=== PATIENT | female | born 1995 | race Caucasian/White ===

== ENCOUNTER 2017-12-04 22:13 | Inpatient (IN) | payer BC ==
[2017-12-04 22:56] VITALS: BMI 27.3
--- NOTE | 2017-12-04 23:32 | PDOC.LDHP ---
Labor and Delivery H&P Chief complaint: other (headache) HPI: 22 yo G1 @ 37.2wks with pmhx of chronic hypertension presents with a headache, since noon today. States its bilateral, frontotemporal, and worsened since noon. She has taken two tylenol which have not helped. Denies changes in vision , n/v/d, LOF, contractions, vaginal discharge, dysuria. She takes methyldopa 500mg BID for her chronic hypertension. She said she did a 24 hour urine protein two weeks ago which she was told was normal. Due date: 12/23/17 Grav: 1 Current complications: gestational diabetes Abnormal US findings: No Past Medical History: chronic htn Current medications: other (methyldopa 500mg BID) Previous surgical history: other (two prior back surgeries for scoliosis) Allergies/Adverse Reactions: Allergies Allergy/AdvReac Type Severity Reaction Status Date / Time No Known Allergies Allergy Unverified 12/04/17 22:46 Social history: none - Physical Exam Vital signs reviewed and normal: yes Abnormal vital signs: 170/117; 171/100; 179/108; 161/108; 147/92 General: NAD Heart: RRR Lungs: nonlabored breathing Abdomen: gravid Extremeties: no edema FHT: category 1 - OB Labs GBS: negative Additional Labs: 24 hour protein in clinic: 240 - Assessment 22 yo G1 @ 37.2wks with pmhx of chronic htn presents with a headache and elevated blood pressures. 1)sIUP- 2)Chronic HTN- -Rule out PreE with severe features -Ordered cbc, cmp, urine protein, urine creatinine -Placed IV, and will give labetalol 20 mg IV prn bp>160/110 -Will monitor bp [id number] overnight and monitor baby via NST
[2017-12-04] MEDS ORDERED: Calcium Carbonate 500 MG ChewTAB PO PRN (23:54)
[2017-12-04] MEDS ORDERED: Labetalol HCl 100 MG/20 ML VIAL SLOW IVP PRN (23:59)
[2017-12-05 00:01] LABS: #Eosinphils 0.1 thou/uL (0.0-0.7); #Lymphocytes 1.8 thou/uL (1.20-3.40); #Monocytes 0.7 thou/uL (0.11-0.59); #Neutrophils 5.6 thou/uL (1.40-6.50); %Basophils 0.4 % (0.0-1.0); %Lymphocytes 22.1 % (21.0-51.0); %Monocytes 8.8 % (0.0-10.0); %Neutrophils 67.7 % (42.0-75.0); Hemoglobin 11.9 g/dL (12.0-16.0); Mean Corpuscular HGB CONC 33.8 g/dL (32.0-36.0); Mean Corpuscular Hemoglobin 32.6 pg (27.0-31.0); Mean Corpuscular Volume 96.3 fL (78.0-98.0); Platelet Count 177 thou/uL (130-400); RBC Distribution Width 12.1 % (11.5-14.5); Red Blood Cell (RBC) Count 3.66 mill/uL (4.20-5.40); White Blood Cell (WBC) Count 8.2 thou/uL (4.8-10.8)
[2017-12-05] MEDS ORDERED: Lactated Ringer's 1,000 ML IV SCH ×2 (00:15→11:15)
[2017-12-05 00:22] LABS: Protein, Urine Random Quant Less than 10 mg/dL (1-14)
[2017-12-05 00:36] LABS: ALT (SGPT) 9 U/L (8-55); AST (SGOT) 20 U/L (5-34); Albumin 3.4 g/dL (3.5-5.0); Alkaline Phosphatase 191 U/L (40-150); Anion Gap 12 mmol/L (10-20); BUN (Urea Nitrogen) 6 mg/dL (7.0-18.7); Bilirubin, Total 0.4 mg/dL (0.2-1.2); Calc. Creatinine Clearance 153 mL/min (70-130); Calcium 10.1 mg/dL (7.8-10.44); Carbon Dioxide 25 mmol/L (22-29); Chloride 103 mmol/L (98-107); Estimated GFR-MDRD Greater than 90; Glucose 89 mg/dL (70-105); Potassium 3.3 mmol/L (3.5-5.1); Protein, Total 6.4 g/dL (6.0-8.3); Sodium 137 mmol/L (136-145)
[2017-12-05] MEDS ORDERED: diphenhydrAMINE 50 MG/ML VIAL IVP PRN ×2 (01:14→15:54)
[2017-12-05] MEDS ORDERED: Acetaminophen 325 MG TAB PO PRN (01:14)
[2017-12-05] MEDS ORDERED: Metoclopramide HCl 10 MG/2 ML VIAL IVP PRN (01:15)
[2017-12-05] MEDS ORDERED: Acetaminophen 500 MG TAB PO SCH (01:15)
--- NOTE | 2017-12-05 07:50 | PRG ---
DATE OF SERVICE: 12/05/2017 TIME OF SERVICE: 06:50 SUMMARY: Ms. Arredondo is a 22-year-old primigravida at 37 weeks, who sees Dr. Daniel Escalante. She has a diagnosis of chronic hypertension and has been on methyldopa 500 b.i.d. for her chronic hypertension . She presented last night complaining of some headaches. These responded well to one dose of labet alol for 170/100 initial presentation blood pressure. Since administration, blood pressures have bee n 145/84, 143/89, currently is 120/86. heart rate tracing has been consistent with category 1 with no contractions. Exam reveals a soft abdomen, normal DTRs. No significant edema. Cervix is cl osed, long, and high, presenting part not palpated. LABORATORY DATA: Reveals a hematocrit of 35% with a normal platelet count, normal creatinine, normal ALT and AST, and a ndquakn-hd-cswgwbounn ratio that is less than 0.2. IMPRESSION: Chronic hypertension in at 37 weeks with elevating systolics and diastolics wi th uncertain presentation. PLAN: 1. Ultrasound with AFSHIN, weight in presentation. 2. Continue labor and delivery observation and we will discuss further patient care with Dr. Escalante.
--- NOTE | 2017-12-05 10:32 | ULT ---
OB ULTRASOUND: DATE: 12/05/17. HISTORY: Chronic hypertension in a patient with positive . FINDINGS: There is a single intrauterine gestation in breech presentation. Cardiac Doppler demonstrates heart tones with a heart rate of 122 b.p.m. A grade III placenta is located anteriorly without evidence of placenta previa. Amniotic fluid index is calculated at 9.6 cm. There is shadowing in the region of the cervix, but based on transabdominal imaging, the cervix gross ly measures 3.3 cm in length. Measurements: Biparietal diameter 8.43 cm, 34 weeks Head circumference 32.11 cm, 36 weeks 2 days Abdominal circumference 31.93 cm, 35 weeks 6 days Femur length 6.92 cm, 35 weeks 4 days The estimated gestational age by ultrasound is 35 weeks and 3 days with an MIRIAN on 01/06/18. Gestatio nal age by the last menstrual period is 37 weeks and 3 days. The estimated weight by ultrasound is 2718 gm (6 pounds). This represents 16th percentile for weight. Four-chamber heart is difficult to definitely delineate on this exam. Cerebellum is obscured due to shadowing from skull. The stomach, bilateral kidneys, and urinary bladder demonstrate a normal sonographic appearance. Three-vessel cord and cord insertion are not well visualized related to fet al positioning and the later gestational age of the fetus limiting adequate evaluation. spine not imaged. No definite anomalies are seen on provided exam. IMPRESSION: 1. Single intrauterine gestation in breech presentation with heart tones documented. 2. Estimated gestational age by ultrasound is 35 weeks and 3 days with an estimated date of delivery on 01/06/18. 3. Estimated weight 2718 gm (6 pounds). 4. Amniotic fluid index measures 9.6 cm. POS: [facility]
[2017-12-05] MEDS ORDERED: Ondansetron HCl/PF 4 MG/2 ML Vial IVP PRN ×4 (11:07→18:54)
[2017-12-05] MEDS ORDERED: Bicitra 30 ML UDCUP PO SCH (11:15)
[2017-12-05] MEDS ORDERED: CEFAZOLIN/Water 2 GM/20 ML SYRINGE SLOW IVP SCH (11:15)
[2017-12-05 12:29] LABS: Hemoglobin 12.3 g/dL (12.0-16.0); Mean Corpuscular HGB CONC 34.3 g/dL (32.0-36.0); Mean Corpuscular Hemoglobin 33.1 pg (27.0-31.0); Mean Corpuscular Volume 96.6 fL (78.0-98.0); Mean Platelet Volume 7.6 fL (7.4-10.4); Platelet Count 181 thou/uL (130-400); RBC Distribution Width 12.1 % (11.5-14.5); Red Blood Cell (RBC) Count 3.71 mill/uL (4.20-5.40); White Blood Cell (WBC) Count 9.5 thou/uL (4.8-10.8)
[2017-12-05 13:20] LABS: HBSAg Index 0.21 S/CO (0-0.99); Hep B Surf Ag Non-Reactive S/CO (NonReactive); Syphilis Antibody Nonreactive (Nonreactive); Syphilis Antibody Index 0.03 S/CO (<1.00 Non-Reactive)
[2017-12-05] MEDS ORDERED: Morphine PF 1 MG/ML SYR ONE (15:22)
[2017-12-05] MEDS ORDERED: Fentanyl 100 MCG/2 ML VIAL ONE (15:22)
[2017-12-05] MEDS ORDERED: Oxytocin 10 UNITS/ML VIAL ONE (15:23)
[2017-12-05] MEDS ORDERED: Ondansetron HCl/PF 4 MG/2 ML Vial ONE ×2 (15:23→16:04)
[2017-12-05] MEDS ORDERED: ePHEDrine/0.9% NaCl/PF SYRINGE 50 mg/10 ml ONE ×2 (15:23→16:04)
[2017-12-05] MEDS ORDERED: Bupivacaine 0.75% W/DEXTROSE 8.25% 2 ML AMP ONE (15:23)
[2017-12-05] MEDS ORDERED: Lidocaine 1% PF 5 ML VIAL ONE (15:23)
[2017-12-05] MEDS ORDERED: PHENYLEPHRINE-NS 100 MCG/ML 10 ML SYRINGE ONE ×2 (15:47→16:04)
[2017-12-05] MEDS ORDERED: Promethazine HCl 25 MG/ML VIAL IM PRN ×2 (15:54→18:54)
[2017-12-05] MEDS ORDERED: Naloxone HCl 0.4 mg/ml Vial IV PRN (15:54)
[2017-12-05] MEDS ORDERED: Meperidine HCl/PF 25 MG/ML VIAL SLOW IVP PRN (15:54)
[2017-12-05] MEDS ORDERED: Promethazine HCl 25 MG SUPP PR PRN (15:54)
[2017-12-05] MEDS ORDERED: Eucerin (Mineral Oil/Petrolatum,White) 30 gm Jar TOP PRN (15:54)
[2017-12-05] MEDS ORDERED: Naloxone HCl 0.4 mg/ml Vial IVP PRN ×2 (15:54)
[2017-12-05] MEDS ORDERED: Ketorolac Tromethamine 30 MG/ML VIAL IVP PRN (15:54)
[2017-12-05] MEDS ORDERED: HYDROmorphone 2 MG/ML VIAL SLOW IVP PRN (15:54)
[2017-12-05] MEDS ORDERED: Ketorolac Tromethamine 30 MG/ML VIAL IVP SCH (16:00)
[2017-12-05] MEDS ORDERED: Communication Order-Pharmacy FS SCH (16:00)
[2017-12-05] MEDS ORDERED: Ketorolac Tromethamine 30 MG/ML VIAL ONE (16:32)
[2017-12-05] MEDS ORDERED: NS / Oxytocin 40 units/1000ml 1,000 ML ONE (17:47)
[2017-12-05] MEDS ORDERED: Lanolin Ointment 7 GM TUBE TOP PRN (18:54)
[2017-12-05] MEDS ORDERED: Bisacodyl 10 MG SUPP PR PRN (18:54)
[2017-12-05] MEDS ORDERED: Zolpidem Tartrate 5 MG TAB PO PRN (18:54)
[2017-12-05] MEDS ORDERED: NS / Oxytocin 40 units/1000ml 1,000 ML IV SCH (18:54)
[2017-12-05] MEDS ORDERED: Misoprostol 200 MCG TAB PR PRN (18:54)
[2017-12-05] MEDS: Docusate Calcium (SURFAK) 240 MG CAP PO SCH (20:54)
[2017-12-05] MEDS: Simethicone Chewable 80 MG TAB PO PRN (20:54)
[2017-12-06] MEDS: HYDROcodone/Acetaminophen 5/325 mg Tablet PO PRN ×5 (05:30→22:37)
[2017-12-06 05:41] LABS: Hemoglobin 10.2 g/dL (12.0-16.0); Mean Corpuscular HGB CONC 34.1 g/dL (32.0-36.0); Mean Corpuscular Hemoglobin 33.5 pg (27.0-31.0); Mean Corpuscular Volume 98.4 fL (78.0-98.0); Mean Platelet Volume 8.3 fL (7.4-10.4); Platelet Count 148 thou/uL (130-400); RBC Distribution Width 12.1 % (11.5-14.5); Red Blood Cell (RBC) Count 3.05 mill/uL (4.20-5.40); White Blood Cell (WBC) Count 10.1 thou/uL (4.8-10.8)
[2017-12-06] MEDS ORDERED: Varicella virus, LIVE 0.5 ML VIAL SC ONE (09:00)
[2017-12-06] MEDS ORDERED: Adacel (T-DAP) 0.5 ML VIAL IM ONE (09:00)
[2017-12-06] MEDS ORDERED: Measles/Mumps/Rubella 10 MCG/0.5 ML VIAL SC ONE (09:00)
[2017-12-06] MEDS: Docusate Calcium (SURFAK) 240 MG CAP PO SCH ×2 (09:09→22:38)
[2017-12-06] MEDS: Simethicone Chewable 80 MG TAB PO PRN ×3 (09:09→22:37)
[2017-12-06] MEDS: Ibuprofen 800 MG TAB PO SCH ×2 (13:47→22:37)
--- NOTE | 2017-12-06 20:11 | PDOC.PP ---
Post Progress Note Post Day #: 1 PO intake tolerated: yes Flatus: yes Ambulation: yes Vital Signs (12 hours) Temp Pulse Resp BP BP 12/06/17 15:40 97.7 F 96 18 149/89 H 12/06/17 09:09 141/79 H Weight Weight 140 lb - Physical Examination General: NAD Cardiovascular: no m/r/g Respiratory: clear to auscultation bilaterally Abdominal: + bowel sounds Extremities: negative homans (B) Skin: CS incision dry & intact Neurological: no gross focal deficits Psychiatric: A&Ox3 Result Diagrams: 12/06/17 04:50 12/04/17 23:47 Additional Labs: Post Labs Blood Type O POSITIVE 12/04/17 23:48 Hep Bs Antigen Non-Reactive S/CO (NonReactive) 12/05/17 12:20 - Assessment/Plan Patient is doing very well today. No complaints.
--- NOTE | 2017-12-07 00:57 | OP ---
DATE OF PROCEDURE: 12/05/2017 PREOPERATIVE DIAGNOSES: Intrauterine at 37 weeks and 3 days with breech presentation and c hronic hypertension with severe exacerbation of blood pressures noted with persistent headache. POSTOPERATIVE DIAGNOSES: Intrauterine at 37 weeks and 3 days with breech presentation and chronic hypertension with severe exacerbation of blood pressures noted with persistent headache. PROCEDURE: A primary low transverse section using a Pfannenstiel skin incision. FINDINGS: Viable female infant weighing 2752 grams or 6 pounds 1 ounce, Apgars 9 and 9 with double f ootling breech presentation. Quantitative blood loss of 450 mL. COMPLICATIONS: None. DETAILS OF THE PROCEDURE: The patient was consented and taken back to the operating room where spina l anesthesia was found to be adequate. She was then prepped and draped in the normal sterile fashion . A time out was performed by the entire operative team. The incision was then marked with a marking pen tested using sharp pickups. An incision was then made with a scalpel. The incision was carried through the adipose tissue down to the underlying rectus fascia using both sharp dissection as well as cautery. Once the fascia was identified, it was incised in the midline and then the fascial incis ion was carried through in both lateral directions using sharp as well as cautery dissection techniqu es. Next, the superior aspect of the rectus fascia was grasped with 2 Renee clamps which was tented up and the rectus muscles were dissected off using blunt dissection as well as cautery dissection. Similarly, the inferior aspect of the fascial incision was grasped with 2 Renee clamps, tented up an d the rectus muscles were dissected off bluntly as well as sharply. Next, the rectus muscles were se parated in the midline and the peritoneum identified. The peritoneum was then carefully grasped with two hemostats and entered sharply. The peritoneal incision was extended superiorly and inferiorly a nd bladder blade was placed in the lower abdomen. At this point, the uterus was identified and the b ladder flap was then developed using pickups with teeth as well as Metzenbaum scissors in both latera l directions. The bladder flap was then dissected downwards using the barrel roller operator's finger as well as M etzenbaum scissors. The bladder blade was replaced. The lower uterine segment was then identified a nd entered sharply using a clean scalpel. The uterine incision was then dissected downwards until th in layer of muscle remained and this was entered bluntly using a hemostat to avoid any injury to the baby. The uterine incision was then stretched using two fingers in both lateral directions. An amniotomy was performed artificially using a hemostat and the baby was delivered using fundal pres sure in a gentle fashion. Once out, the baby's mouth and nose were bulb suctioned, cord clamped and cut, and the baby was handed to waiting attendants. Next, the uterus was exteriorized, cleared of al l clots and debris and the uterine incision was repaired with #1 Monocryl in a running locking fashio n. A second suture of the same type was used to obtain complete hemostasis at the uterine incision. The bladder flap was reapproximated using 3-0 Monocryl. Next, patient's left and right adnexa were inspected and appeared to be within normal limits. The posterior cul-de-sac was blotted dry and hemo stasis assured. One more look at the uterine incision demonstrated hemostasis. Next, the uterus was replaced back within the abdomen. The peritoneum was reapproximated using 2-0 Monocryl without diff iculty. The rectus muscles were then allowed to come back together and 0 chromic was used to aid in reapproximation of the muscle as necessary. The rectus fascia was then reapproximated in a running f ashion using 0 Vicryl suture. The adipose tissue was then examined and appeared to be well approxima joel without any obvious separations. Finally, the skin was reapproximated with 3-0 Monocryl on a Lex th needle without difficulty and Dermabond adhesive was applied to the skin. Once the glue was dry, the drapes were removed and the patient was transferred to an ambulatory bed where she was taken to [facility] awake and in stable condition. Sponge, lap, and needle counts were correct x3. ADDENDUM: The baby was delivered in a double footling breech without complications.
[2017-12-07] MEDS: Ibuprofen 800 MG TAB PO SCH ×3 (05:18→21:06)
[2017-12-07] MEDS: HYDROcodone/Acetaminophen 5/325 mg Tablet PO PRN ×5 (05:21→21:11)
[2017-12-07] MEDS: Docusate Calcium (SURFAK) 240 MG CAP PO SCH ×2 (09:14→21:06)
[2017-12-07] MEDS: Simethicone Chewable 80 MG TAB PO PRN (09:15)
--- NOTE | 2017-12-07 18:28 | PDOC.PP ---
Post Progress Note Post Day #: 2 PO intake tolerated: yes Vital Signs (12 hours) Temp Pulse Resp BP BP Pulse Ox 12/07/17 17:46 97.9 F 104 H 20 150/80 H 12/07/17 11:52 97.8 F 99 20 137/87 12/07/17 09:14 141/79 H 12/07/17 07:23 98.2 F 90 18 131/75 98 Weight Weight 140 lb - Physical Examination General: NAD Cardiovascular: no m/r/g Respiratory: clear to auscultation bilaterally Abdominal: + bowel sounds Extremities: negative homans (B) Skin: CS incision dry & intact Neurological: no gross focal deficits Psychiatric: A&Ox3 Result Diagrams: 12/06/17 04:50 12/04/17 23:47 Additional Labs: Post Labs Blood Type O POSITIVE 12/04/17 23:48 Hep Bs Antigen Non-Reactive S/CO (NonReactive) 12/05/17 12:20 - Assessment/Plan DC home in am.
[2017-12-08] MEDS: HYDROcodone/Acetaminophen 5/325 mg Tablet PO PRN ×4 (01:04→17:56)
[2017-12-08] MEDS: Ibuprofen 800 MG TAB PO SCH ×2 (06:28→13:53)
[2017-12-08] MEDS: Docusate Calcium (SURFAK) 240 MG CAP PO SCH (08:27)
[2017-12-08] MEDS: Simethicone Chewable 80 MG TAB PO PRN (08:27)
[2017-12-08 08:46] VITALS: BP 139/83; TEMP 98.7
== END 2017-12-08 19:00 | disposition home or self-care (01) | DRG 766 ==
LOC: L&D/OP 22:13 → L&D 12-05 01:26 → OBSVTOIN 12-05 11:07 → 3SW 12-05 19:10
PROVIDERS: ADMIT Obstetrics & Gynecology; ATTEND Obstetrics & Gynecology
PROC: 10D00Z1 Extraction of Products of Conception, Low, Open Approach (ICD-10-PCS; principal; 2017-12-06)
DX: O10.92 Unspecified pre-existing hypertension complicating childbirth (principal); Z3A.37 37 weeks gestation of pregnancy; Z37.0 Single live birth; O24.429 Gestational diabetes mellitus in childbirth, unspecified control; O32.1XX0 Maternal care for breech presentation, not applicable or unspecified
CPT/HCPCS: 36415; 51702; 76815; 80053; 82570; 84156; 85025; 85027; 86780; 86850; 87340; 90715; 99285; J1885; J2001; J2270; J2274; J2310; J2405; J2590; J3010; J3490